=== PATIENT | male | born 1970 | race Two or more races ===

== ENCOUNTER 2017-09-10 07:33 | Emergency (ER) | payer OTHER ==
[~2017-09-10] VITALS: Ht 170.2 cm; Wt 79.4 kg
[~2017-09-10 07:33] MED LIST: KETO10TA2 PO; LISINOPRIL-HCTZ1 T13
[2017-09-10] MEDS ORDERED: TUSSI PRES-B L120 M1 PO (10:32)
[2017-09-10] MEDS ORDERED: ZITHROMAX200 MG PO (10:32)
== END 2017-09-10 10:56 | disposition home or self-care (01) ==
LOC: ER 07:33
DX: B34.9 Viral infection, unspecified (principal)

== ENCOUNTER 2018-07-30 13:15 | Emergency (ER) | payer OTHER ==
[~2018-07-30] VITALS: Ht 170.2 cm; Wt 83.9 kg
[~2018-07-30 13:15] MED LIST changes: +TUSSI PRES-B L120 M1 PO; +ZITHROMAX200 MG PO
[2018-07-30] MEDS ORDERED: PREVACID30 MG PO (13:22)
[2018-07-31] MEDS ORDERED: FLAGYL500MG PO ×3 (09:46→09:55)
[2018-07-31] MEDS ORDERED: CIPRO500 MG PO (09:46)
== END 2018-07-31 13:23 | disposition home or self-care (01) ==
LOC: ER 13:15
DX: K57.92 Diverticulitis of intestine, part unspecified, without perforation or abscess without bleeding (principal)

== ENCOUNTER → 2018-08-15 | Emergency (ER) | payer OTHER ==
[~2018-08-15] VITALS: Ht 170.2 cm; Wt 83.0 kg
[~2018-08-15] MED LIST changes: +CIPRO500 MG PO; +FLAGYL500MG PO; +PREVACID30 MG PO
== END | disposition left against medical advice (07) ==
LOC: ER 18:53
DX: Z53.20 Procedure and treatment not carried out because of patient's decision for unspecified reasons (principal)

== ENCOUNTER 2019-07-03 07:40 | Day surgery (SDC) | payer OTHER | END 2019-07-03 12:25 | disposition home or self-care (01) | LOC: AMB-ENDOS 07:40 | DX: K57.32 Diverticulitis of large intestine without perforation or abscess without bleeding (principal); K58.8 Other irritable bowel syndrome; K57.30 Diverticulosis of large intestine without perforation or abscess without bleeding; K64.1 Second degree hemorrhoids; K64.8 Other hemorrhoids ==

== ENCOUNTER 2019-07-23 15:31 | Inpatient (IN) | payer OTHER ==
[~2019-07-23] VITALS: Ht 170.2 cm; Wt 83.9 kg
[2019-08-26] MEDS ORDERED: [UNRECOGNIZED DRUG - CODE] PO (13:46)
[2019-08-26] MEDS ORDERED: DEPAKOTE ER250 MG PO (13:47)
[2019-08-26] MEDS ORDERED: OMEPRAZOLE PO (13:47)
[2019-08-26] MEDS ORDERED: HYOSCYAMINE0.125 M2 PO (13:48)
[2019-09-02] MEDS ORDERED: OMEPRAZOLE20 MG PO (15:40)
[2019-09-02] MEDS ORDERED: ALBUTEROL2.5 MG/3 M (15:40)
[2019-09-02] MEDS ORDERED: CIALIS5 MG PO (15:41)
== END 2019-09-09 14:07 | disposition home or self-care (01) | DRG 330 ==
LOC: SURG 09-02 08:45 → O/R 09-02 09:50 → SURG 09-02 09:50
PROVIDERS: ADMIT Colon & Rectal Surgery
PROC: 0DJD8ZZ Inspection of Lower Intestinal Tract, Via Natural or Artificial Opening Endoscopic (ICD-10-PCS; 2019-09-02)
PROC: 3E0F7GC Introduction of Other Therapeutic Substance into Respiratory Tract, Via Natural or Artificial Opening (ICD-10-PCS; 2019-09-02)
PROC: 0DTN4ZZ Resection of Sigmoid Colon, Percutaneous Endoscopic Approach (ICD-10-PCS; principal; 2019-09-02 08:45)
PROC: 4A033R1 Measurement of Arterial Saturation, Peripheral, Percutaneous Approach (ICD-10-PCS; 2019-09-03)
PROC: 4A12X4Z Monitoring of Cardiac Electrical Activity, External Approach (ICD-10-PCS; 2019-09-03)
DX: K57.32 Diverticulitis of large intestine without perforation or abscess without bleeding (principal); F31.89 Other bipolar disorder; I11.9 Hypertensive heart disease without heart failure; G47.33 Obstructive sleep apnea (adult) (pediatric); K58.9 Irritable bowel syndrome, unspecified; F41.8 Other specified anxiety disorders; J45.20 Mild intermittent asthma, uncomplicated; F17.200 Nicotine dependence, unspecified, uncomplicated; G43.809 Other migraine, not intractable, without status migrainosus

== ENCOUNTER → 2019-08-20 | Outpatient (CLI) | payer OTHER | END | disposition home or self-care (01) | LOC: RAD 12:57 | DX: K57.32 Diverticulitis of large intestine without perforation or abscess without bleeding (principal); K58.8 Other irritable bowel syndrome; K92.1 Melena ==

== ENCOUNTER 2020-12-09 08:36 | Day surgery (SDC) | payer OTHER ==
[~2020-12-09 08:36] MED LIST changes: +ALBUTEROL2.5 MG/3 M; +CIALIS5 MG PO; +DEPAKOTE ER250 MG PO; +HYOSCYAMINE0.125 M2 PO; +OMEPRAZOLE PO; +OMEPRAZOLE20 MG PO; +[UNRECOGNIZED DRUG - CODE] PO
== END 2020-12-09 13:35 | disposition home or self-care (01) ==
LOC: AMB-ENDOS 08:36
PROVIDERS: ATTEND Colon & Rectal Surgery
DX: K57.32 Diverticulitis of large intestine without perforation or abscess without bleeding (principal); K64.1 Second degree hemorrhoids; Z20.822 Contact with and (suspected) exposure to COVID-19

== ENCOUNTER 2022-03-02 10:34 | Outpatient (CLI) | payer OTHER | END 2022-03-02 10:38 | disposition home or self-care (01) | LOC: RAD 10:34 | DX: M25.561 Pain in right knee (principal) ==

== ENCOUNTER 2024-07-02 14:16 | Outpatient (CLI) | payer OTHER | END 2024-07-02 14:23 | disposition home or self-care (01) | LOC: RAD 14:16 | DX: M17.0 Bilateral primary osteoarthritis of knee (principal) ==

== ENCOUNTER 2025-02-03 12:47 | Outpatient (CLI) | payer OTHER | END 2025-02-03 12:58 | disposition home or self-care (01) | LOC: RAD 12:47 | PROVIDERS: ATTEND Orthopaedic Surgery | DX: M25.561 Pain in right knee (principal); M25.562 Pain in left knee; M17.0 Bilateral primary osteoarthritis of knee ==

== ENCOUNTER 2025-02-22 09:39 | Outpatient (CLI) | payer OTHER ==
[~2025-02-22] VITALS: Ht 170.2 cm; Wt 74.8 kg
[2025-02-22 10:51] VITALS: BP 119/78
[2025-02-22 10:52] LABS: URINE APPEARANCE Clear; URINE BILIRRUBIN Negative (NEGATIVE); URINE BLOOD Negative; URINE COLOR Yellow; URINE GLUCOSE Negative (NEGATIVE); URINE KETONE Trace (NEGATIVE); URINE LEUKOCYTE Trace; URINE NITRATE Negative; URINE PROTEIN Negative (NEGATIVE); URINE UROBILINOGEN 0.2 E.U./dl
[2025-02-22 10:53] LABS: URINE RBC 3.6 uL (0.0-20.8)
[2025-02-22 11:03] LABS: URINE BACTERIA 1.1 uL (0.0-1933); URINE CAST 0.29 uL (0.0-1.40); URINE EPITHELIAL CELLS 0.3 uL (0.0-38.8); URINE WBC 1.2 uL (0.0-23.2)
[2025-02-22 11:14] LABS: BASO % 0.6 % (0.1-1.2); EOS # 0.09 (0.04-0.54); EOS % 1.8 % (0.7-7.0); LYMPH # 1.18 (1.18-3.74); LYMPH % 23.8 % (19.3-53.1); MEAN PLATELET VOLUME 11.20 fl (9.4-12.4); MONO # 0.40 (0.24-0.82); MONO % 8.1 % (4.7-12.5); NEUT # 3.25 (1.56-6.13); NEUT % 65.5 % (34.0-71.1); RED CELL DISTRIBUTION WIDTH 14.0 % (11.6-14.4)
[2025-02-22 11:54] LABS: COL EPI 99 SECONDS (82-175)
[2025-02-22 11:55] LABS: INR 0.96
[2025-02-22 12:14] LABS: ALT/SGPT 16.0 U/L (12-78); AST/SGOT 8.0 U/L (15-37); BILIRUBIN TOTAL 0.46 mg/dL (0.3-1.2); BUN CREA RATIO 17.0 (7.0-25.0); CREATININE SERUM 0.87 mg/dL (0.70-1.30); GFR 90.77; GLOBULINA 3.4 G/DL (2.4-3.5); GLUCOSE FASTING 77.0 mg/dL (65-100); OSMOLALITY SERUM 285.0 MOSM/KG (275-295)
== END 2025-02-22 09:48 | disposition home or self-care (01) ==
LOC: RAD 09:39
PROVIDERS: ATTEND Orthopaedic Surgery
DX: D64.9 Anemia, unspecified (principal); E88.9 Metabolic disorder, unspecified; D68.8 Other specified coagulation defects; N39.0 Urinary tract infection, site not specified; Z22.322 Carrier or suspected carrier of Methicillin resistant Staphylococcus aureus; E11.9 Type 2 diabetes mellitus without complications; Z76.89 Persons encountering health services in other specified circumstances; I10 Essential (primary) hypertension

== ENCOUNTER 2025-03-04 13:58 | Inpatient (IN) | payer OTHER ==
[~2025-03-04] VITALS: Ht 170.2 cm; Wt 74.8 kg
[2025-03-04] MEDS ORDERED: AMBIEN10 MG PO (14:02)
[2025-03-04] MEDS ORDERED: TAMS0.4C PO (14:02)
[2025-03-04] MEDS ORDERED: RISPERDAL2 MG PO (14:03)
[2025-03-04] MEDS ORDERED: GRALISE600 MG PO (14:03)
[2025-03-04] MEDS ORDERED: ZEPBOUND15 MG/0.5 (14:03)
[2025-03-15] MEDS ORDERED: LIDOCAINE HCL 1%/EPINEPHRINE 20ML VIAL IJ ONE (17:15)
[2025-03-15] MEDS ORDERED: BUPIVACAINE HCL 30 ML VIAL IJ ONE ×2 (17:15→17:30)
[2025-03-15] MEDS ORDERED: CEFOXITIN SODIUM 2,000 MG VIAL IV SCH (17:15)
[2025-03-15] MEDS ORDERED: KETOROLAC TROMETHAMINE 60 MG VIAL IM ONE (17:15)
[2025-03-15] MEDS ORDERED: MORPHINE SULFATE 4 MG/ML VIAL IV ONE ×3 (17:30→21:35)
[2025-03-15] MEDS ORDERED: ISOPROPYL ALCOHOL 30 ML OUNCE TOP ONE (17:30)
[2025-03-15] MEDS ORDERED: TRANEXAMIC ACID 100MG/1ML (1000MG) AMPUL IV ONE ×2 (17:30→20:15)
[2025-03-15] MEDS ORDERED: ONDANSETRON HCL 2 MG/ML VIAL IV PRN (18:45)
[2025-03-15] MEDS ORDERED: SODIUM CHLORIDE 0.45 % 1,000 ML IV SCH (18:45)
[2025-03-15] MEDS ORDERED: TRAMADOL HCL 50 MG TABLET PO PRN (18:45)
[2025-03-15] MEDS ORDERED: ONDANSETRON 4 MG TAB.RAPDIS PO PRN (18:45)
[2025-03-15] MEDS ORDERED: MEPERIDINE HCL/PF 50 MG/ML VIAL IM PRN (18:45)
[2025-03-15] MEDS ORDERED: PROMETHAZINE HCL 50 MG/ML AMPUL IM PRN (18:45)
[2025-03-15] MEDS ORDERED: CELECOXIB 200 MG CAPSULE PO SCH (18:50)
[2025-03-15] MEDS ORDERED: CEFAZOLIN SODIUM 1,000 MG VIAL IV SCH (18:50)
[2025-03-15] MEDS ORDERED: PANTOPRAZOLE SODIUM 40 MG TABLET.DR PO SCH (18:50)
[2025-03-15] MEDS ORDERED: KETOROLAC TROMETHAMINE 10 MG TABLET PO SCH (21:00)
[2025-03-15] MEDS ORDERED: ACETAMINOPHEN 325 MG TABLET PO SCH (21:00)
[2025-03-16 03:05] VITALS: BP 106/66; O2SAT 96
[2025-03-16 07:51] LABS: BASO % 0.1 % (0.1-1.2); EOS # 0.02 (0.04-0.54); EOS % 0.2 % (0.7-7.0); LYMPH # 1.08 (1.18-3.74); LYMPH % 12.2 % (19.3-53.1); MEAN PLATELET VOLUME 11.00 fl (9.4-12.4); MONO # 0.99 (0.24-0.82); MONO % 11.2 % (4.7-12.5); NEUT # 6.73 (1.56-6.13); NEUT % 76.0 % (34.0-71.1); RED CELL DISTRIBUTION WIDTH 14.1 % (11.6-14.4)
[2025-03-16] MEDS ORDERED: RIVAROXABAN 10 MG TAB PO SCH (09:00)
[2025-03-16 09:59] VITALS: BP 113/76; O2SAT 96
[2025-03-16] MEDS ORDERED: IRON FUM,PS/FOLIC/BCOMP,C NO.9 1 CAP CAPSULE PO NR (10:00)
[2025-03-16 16:31] VITALS: BP 109/74; O2SAT 96
[2025-03-16] MEDS ORDERED: FAMOTIDINE/PF 20 MG in 0.9 % SODIUM CHLORIDE 8 ML IV PUSH SCH (16:38)
[2025-03-16] MEDS ORDERED: DIVALPROEX SODIUM 250 MG TAB.ER.24H PO SCH (16:38)
[2025-03-16] MEDS ORDERED: ENALAPRILAT DIHYDRATE 1.25 MG/ML VIAL IV PRN (16:45)
[2025-03-16] MEDS ORDERED: SOD FERRIC GLUC COMPLX/SUCROSE 62.5 MG in 0.9 % SODIUM CHLORIDE 50 ML IV SCH (17:00)
[2025-03-17 01:36] VITALS: BP 103/69; O2SAT 96
[2025-03-17 08:00] VITALS: BP 115/77; O2SAT 97
[2025-03-17] MEDS ORDERED: LISINOPRIL 10 MG TABLET PO SCH (09:00)
[2025-03-17] MEDS ORDERED: HYDROCHLOROTHIAZIDE 12.5 MG CAPSULE PO SCH (09:00)
[2025-03-17] MEDS ORDERED: SENNA/DOCUSATE SODIUM 1 TAB TABLET PO SCH (09:00)
[2025-03-17] MEDS ORDERED: IRON FUM,PS/FOLIC/BCOMP,C NO.9 1 CAP CAPSULE PO SCH (09:00)
[2025-03-17 11:50] LABS: BASO % 0.4 % (0.1-1.2); EOS # 0.01 (0.04-0.54); EOS % 0.1 % (0.7-7.0); LYMPH # 0.54 (1.18-3.74); LYMPH % 7.7 % (19.3-53.1); MEAN PLATELET VOLUME 11.80 fl (9.4-12.4); MONO # 0.83 (0.24-0.82); MONO % 11.8 % (4.7-12.5); NEUT # 5.60 (1.56-6.13); NEUT % 79.6 % (34.0-71.1); RED CELL DISTRIBUTION WIDTH 14.2 % (11.6-14.4)
[2025-03-17 17:36] VITALS: BP 115/76; BP 122/76; O2SAT 95; O2SAT 97
[2025-03-18 00:44] VITALS: BP 107/64; O2SAT 97
[2025-03-18 10:30] LABS: BASO % 0.6 % (0.1-1.2); EOS # 0.31 (0.04-0.54); EOS % 4.9 % (0.7-7.0); LYMPH # 1.34 (1.18-3.74); LYMPH % 21.3 % (19.3-53.1); MEAN PLATELET VOLUME 11.70 fl (9.4-12.4); MONO # 0.87 (0.24-0.82); NEUT # 3.71 (1.56-6.13); NEUT % 59.1 % (34.0-71.1); RED CELL DISTRIBUTION WIDTH 14.3 % (11.6-14.4)
[2025-03-18 10:34] LABS: MONO % 13.8 % (4.7-12.5)
[2025-03-18 16:00] VITALS: BP 126/86; O2SAT 98
== END 2025-03-18 16:34 | disposition home or self-care (01) | DRG 470 ==
LOC: SURH 03-15 12:00 → O/R 03-15 14:11 → SURH 03-15 14:11
PROVIDERS: Internal Medicine; ADMIT Orthopaedic Surgery; ATTEND Orthopaedic Surgery
PROC: 0SRC0J9 Replacement of Right Knee Joint with Synthetic Substitute, Cemented, Open Approach (ICD-10-PCS; principal; 2025-03-15 12:30)
PROC: 30233N1 Transfusion of Nonautologous Red Blood Cells into Peripheral Vein, Percutaneous Approach (ICD-10-PCS; 2025-03-17)
DX: M17.11 Unilateral primary osteoarthritis, right knee (principal); D62 Acute posthemorrhagic anemia; M85.661 Other cyst of bone, right lower leg; D64.89 Other specified anemias; Z74.09 Other reduced mobility

== ENCOUNTER 2025-03-26 20:38 | Emergency (ER) | payer OTHER ==
[~2025-03-26] VITALS: Ht 170.2 cm; Wt 77.1 kg
[~2025-03-26 20:38] MED LIST changes: +AMBIEN10 MG PO; +GRALISE600 MG PO; +RISPERDAL2 MG PO; +TAMS0.4C PO; +ZEPBOUND15 MG/0.5
[2025-03-27] MEDS ORDERED: TRAMADOL HCL 50 MG TABLET PO ONE (00:30)
[2025-03-27 01:26] LABS: BASO % 0.3 % (0.1-1.2); EOS # 0.22 (0.04-0.54); EOS % 3.6 % (0.7-7.0); LYMPH # 1.13 (1.18-3.74); LYMPH % 18.6 % (19.3-53.1); MEAN PLATELET VOLUME 9.20 fl (9.4-12.4); MONO # 0.63 (0.24-0.82); MONO % 10.4 % (4.7-12.5); NEUT # 4.01 (1.56-6.13); NEUT % 66.1 % (34.0-71.1); RED CELL DISTRIBUTION WIDTH 15.6 % (11.6-14.4)
[2025-03-27 01:41] LABS: D DIMER 9.35 MG/L
[2025-03-27 01:46] LABS: ALT/SGPT 19.0 U/L (12-78); AST/SGOT 30.0 U/L (15-37); BILIRUBIN TOTAL 0.62 mg/dL (0.3-1.2); BUN CREA RATIO 20.0 (7.0-25.0); CREATININE SERUM 1.0 mg/dL (0.70-1.30); GFR 77.3; GLOBULINA 4.0 G/DL (2.4-3.5); GLUCOSE FASTING 92.0 mg/dL (65-100); OSMOLALITY SERUM 282.0 MOSM/KG (275-295)
[2025-03-27 02:01] LABS: INR 1.0
== END 2025-03-27 16:05 | disposition home or self-care (01) ==
LOC: ER 20:38
PROVIDERS: Preventive Medicine Public Health & General Preventive Medicine
DX: D64.9 Anemia, unspecified (principal); M79.661 Pain in right lower leg; M79.89 Other specified soft tissue disorders; I10 Essential (primary) hypertension; Z88.6 Allergy status to analgesic agent; Z88.8 Allergy status to other drugs, medicaments and biological substances

== ENCOUNTER → 2025-05-03 09:36 | Outpatient (CLI) | payer OTHER ==
[2025-05-03 10:48] LABS: URINE APPEARANCE Clear; URINE BILIRRUBIN Negative (NEGATIVE); URINE BLOOD Negative; URINE COLOR Yellow; URINE GLUCOSE Negative (NEGATIVE); URINE KETONE Negative (NEGATIVE); URINE LEUKOCYTE Negative; URINE NITRATE Negative; URINE PROTEIN Negative (NEGATIVE); URINE UROBILINOGEN 1.0 E.U./dl
[2025-05-03 10:49] LABS: URINE RBC 6.1 uL (0.0-20.8)
[2025-05-03 11:06] LABS: URINE BACTERIA 1.1 uL (0.0-1933); URINE CAST 0.00 uL (0.0-1.40); URINE EPITHELIAL CELLS 0.4 uL (0.0-38.8); URINE WBC 1.0 uL (0.0-23.2)
[2025-05-03 12:38] LABS: COL EPI 115 SECONDS (82-175)
== END | disposition home or self-care (01) ==
LOC: LAB 09:36
PROVIDERS: ATTEND Orthopaedic Surgery
DX: D68.8 Other specified coagulation defects (principal); I10 Essential (primary) hypertension; N39.0 Urinary tract infection, site not specified; Z22.322 Carrier or suspected carrier of Methicillin resistant Staphylococcus aureus

== ENCOUNTER 2025-05-10 06:00 | Inpatient (IN) | payer OTHER ==
[2025-05-05 12:22] VITALS: BP 117/80
[2025-05-05 13:36] LABS: COVID-19 AG NEGATIVE (NEGATIVE)
[~2025-05-10] VITALS: Ht 170.2 cm; Wt 77.1 kg
[2025-05-10] MEDS ORDERED: CEFAZOLIN SODIUM 1,000 MG VIAL ONE ×2 (07:41→16:34)
[2025-05-10] MEDS ORDERED: EPINEPHRINE HCL/PF 1 MG/ML AMPUL ONE (08:06)
[2025-05-10] MEDS ORDERED: CEFAZOLIN SODIUM 1,000 MG VIAL IV ONE (10:00)
[2025-05-10] MEDS ORDERED: EPINEPHRINE HCL/PF 1 MG/ML AMPUL IR ONE (10:00)
[2025-05-10] MEDS ORDERED: ONDANSETRON HCL 2 MG/ML VIAL IV PRN (10:30)
[2025-05-10] MEDS ORDERED: SODIUM CHLORIDE 0.45 % 1,000 ML IV SCH (10:30)
[2025-05-10] MEDS ORDERED: PROMETHAZINE HCL 50 MG/ML AMPUL IM PRN (10:30)
[2025-05-10] MEDS ORDERED: ONDANSETRON 4 MG TAB.RAPDIS PO PRN (10:30)
[2025-05-10] MEDS ORDERED: RIVAROXABAN 10 MG TAB PO SCH (10:45)
[2025-05-10] MEDS ORDERED: KETOROLAC TROMETHAMINE 10 MG TABLET PO SCH (13:00)
[2025-05-10] MEDS ORDERED: ACETAMINOPHEN 325 MG TABLET PO SCH (13:00)
[2025-05-10] MEDS ORDERED: ACETAMINOPHEN 325 MG TABLET PO ONE (16:34)
[2025-05-10] MEDS ORDERED: CELECOXIB 200 MG CAPSULE PO ONE (16:34)
[2025-05-10] MEDS ORDERED: CEFAZOLIN SODIUM 1,000 MG VIAL IV SCH (17:00)
[2025-05-10] MEDS ORDERED: CELECOXIB 200 MG CAPSULE PO SCH (17:00)
[2025-05-10 17:47] VITALS: BP 152/79
[2025-05-11 02:16] VITALS: BP 146/85; O2SAT 97
[2025-05-11 08:51] VITALS: BP 133/86; O2SAT 98
[2025-05-11] MEDS ORDERED: PANTOPRAZOLE SODIUM 40 MG TABLET.DR PO SCH (09:00)
[2025-05-11] MEDS ORDERED: VITAMIN C IV ONE (10:00)
[2025-05-11] MEDS ORDERED: TRAMADOL HCL 50 MG TABLET PO PRN ×2 (11:30)
[2025-05-11 17:52] VITALS: BP 129/78; O2SAT 97
[2025-05-12 03:22] VITALS: BP 121/81; O2SAT 97
[2025-05-12 07:00] VITALS: BP 150/94; O2SAT 97
[2025-05-12] MEDS ORDERED: SENNA/DOCUSATE SODIUM 1 TAB TABLET PO SCH (09:00)
== END 2025-05-12 13:34 | disposition home or self-care (01) | DRG 489 ==
LOC: CIR.AMB 06:00 → MEDJ 12:27 → O/R 12:27 → MEDJ 12:37
PROVIDERS: ADMIT Orthopaedic Surgery; ATTEND Orthopaedic Surgery
PROC: 0SBC4ZZ Excision of Right Knee Joint, Percutaneous Endoscopic Approach (ICD-10-PCS; principal; 2025-05-10 07:00)
DX: M24.561 Contracture, right knee (principal); M65.961 Unspecified synovitis and tenosynovitis, right lower leg

== ENCOUNTER 2025-05-26 09:19 | Outpatient (CLI) | payer OTHER ==
[2025-05-26 10:31] LABS: URINE APPEARANCE Clear; URINE BILIRRUBIN Negative (NEGATIVE); URINE BLOOD Negative; URINE COLOR Yellow; URINE GLUCOSE Negative (NEGATIVE); URINE KETONE Trace (NEGATIVE); URINE LEUKOCYTE Negative; URINE NITRATE Negative; URINE PROTEIN Negative (NEGATIVE); URINE UROBILINOGEN 1.0 E.U./dl
[2025-05-26 10:33] LABS: URINE EPITHELIAL CELLS 2.1 uL (0.0-38.8); URINE RBC 7.0 uL (0.0-20.8)
[2025-05-26 10:37] LABS: BASO % 0.8 % (0.1-1.2); EOS # 0.09 (0.04-0.54); EOS % 1.8 % (0.7-7.0); LYMPH # 1.24 (1.18-3.74); LYMPH % 24.8 % (19.3-53.1); MEAN PLATELET VOLUME 10.60 fl (9.4-12.4); MONO # 0.38 (0.24-0.82); MONO % 7.6 % (4.7-12.5); NEUT # 3.24 (1.56-6.13); NEUT % 64.8 % (34.0-71.1); RED CELL DISTRIBUTION WIDTH 12.9 % (11.6-14.4)
[2025-05-26 10:50] LABS: ERYTHROCYTE SEDIMENTATION RATE 34 mm/hr (0-20); URINE BACTERIA 3.6 uL (0.0-1933); URINE CAST 0.29 uL (0.0-1.40); URINE WBC 1.0 uL (0.0-23.2)
[2025-05-26 11:28] LABS: ALT/SGPT 12.0 U/L (12-78); AST/SGOT 10.0 U/L (15-37); BILIRUBIN TOTAL 0.3 mg/dL (0.3-1.2); BUN CREA RATIO 24.0 (7.0-25.0); CREATININE SERUM 0.85 mg/dL (0.70-1.30); GFR 93.24; GLOBULINA 3.8 G/DL (2.4-3.5); GLUCOSE FASTING 84.0 mg/dL (65-100); OSMOLALITY SERUM 281.0 MOSM/KG (275-295)
== END 2025-05-26 09:24 | disposition home or self-care (01) ==
LOC: LAB 09:19
PROVIDERS: ATTEND Orthopaedic Surgery
DX: D64.9 Anemia, unspecified (principal); E88.89 Other specified metabolic disorders; N39.0 Urinary tract infection, site not specified; M06.4 Inflammatory polyarthropathy